=== PATIENT | male | born 1985 | race Caucasian/White ===

== ENCOUNTER → 2020-02-05 16:57 | Outpatient (BNVA) | payer OTHER, SELFPAY | PROVIDERS: Visit Provider Family Medicine | DX: I10 Essential (primary) hypertension (principal); M1A.0790 Idiopathic chronic gout, unspecified ankle and foot, without tophus (tophi) | CPT/HCPCS: 80053; 80061; 84550 ==

== ENCOUNTER → 2020-05-13 10:50 | Outpatient (BNVA) | payer OTHER, SELFPAY | PROVIDERS: Visit Provider Family Medicine | DX: E78.5 Hyperlipidemia, unspecified (principal); F41.9 Anxiety disorder, unspecified; I10 Essential (primary) hypertension; E78.1 Pure hyperglyceridemia | CPT/HCPCS: 80061 ==

== ENCOUNTER → 2020-11-17 11:40 | Outpatient (BNVA) | payer OTHER, SELFPAY | PROVIDERS: Visit Provider Nurse Practitioner Family | DX: Z20.828 Contact with and (suspected) exposure to other viral communicable diseases (principal); J06.9 Acute upper respiratory infection, unspecified | CPT/HCPCS: 87635 ==

== ENCOUNTER 2020-11-23 07:47 | Outpatient (CLI) | payer OTHER, SELFPAY ==
[2020-11-23 07:57] VITALS: BP 154/114; PULSE 90; RESP 17; TEMP 36.6; O2SAT 96; BMI 40.4
[2020-11-23 08:24] VITALS: BMI 40.4
--- NOTE | 2020-11-23 08:39 | AMB.MCA ---
Patient Information Referred by: Flora Dulce Symptom onset date: 11/15/20 COVID 19 common symptoms: positive dyspnea and fatigue Severity: mild Treatment prior to arrival: none Other details: Sats 97% RA OZH COVID test results: Nasal/Oral Coronavirus 2019 PCR Detected H 11/17/20 11:40 11/17/20 Criteria/Plan Inclusion/Exclusion Criteria weight >/= 40kg, + direct test </= 10 days ago and symptom onset </= 10 days ago BMI >/= 35 not requiring hospitalization, not requiring oxygen (if not chronically on oxygen) and no increase oxygen requirement (if chronically on oxygen) Patient education patient/caregiver received/reviewed fact sheet, Emergency Use Authorization/unapproved drug status discussed with patient/caregiver, alternatives to this treatment discussed with patient/caregiver, risks and benefits of medication reviewed with patient/caregiver, patient/caregiver given opportunity for questions, which were answered and patient/caregiver consents to receiving Monoclonal Antibody Treatment Related diagnosis (1) COVID-19: Plan for treatment Meets criteria for Monoclonal Antibody infusion Ordering Monoclonal Antibody infusion for today
[2020-11-23 09:31] VITALS: BP 148/95; PULSE 86; RESP 16; TEMP 36.5; O2SAT 95
[2020-11-23 10:02] VITALS: BP 140/100; PULSE 87; RESP 17; TEMP 36.5; O2SAT 95
[2020-11-23 11:15] VITALS: BP 163/113; PULSE 84; RESP 16; TEMP 36.6; O2SAT 96
[2020-11-23 11:16] VITALS: BP 163/113; PULSE 84; O2SAT 96
--- NOTE | 2020-11-24 14:12 | DCPLANNER ---
Addendum entered by Jillian Mullen 12/03/20 13:41: land surveyor manager called to check on patient 10 days after the BAM infusion. land surveyor manager was unable to speak with patient at this time, a voicemail was left for patient to return lead case manager phone call. Original Note: land surveyor manager had message that patient received the BAM infusion. land surveyor manager called to check on patient after receiving the infusion. Patient stated that he tolerated infusion well. Before the infusion, patient stated that before the infusion, that he had sinus pressure, cough, runny nose, and body aches. He stated that after the infusion that he is feeling a little bit better, his cough is better, his sinuses are better. Patient also stated that his body aches are better. Patient stated that he will take care of scheduling a follow up appointment with his provider.
== END 2020-11-23 11:27 | disposition home or self-care (01) ==
LOC: OPS 07:49
PROVIDERS: Visit Provider Nurse Practitioner Family
DX: U07.1 COVID-19 (principal)
CPT/HCPCS: J7050

== ENCOUNTER 2021-12-16 04:52 | Emergency (ER) | payer OTHER, SELFPAY ==
--- NOTE | 2021-12-16 04:56 | CTR_ITS ---
PROCEDURE INFORMATION: Exam: CT Abdomen And Pelvis Without Contrast Exam date and time: 12/16/2021 4:56 AM Age: 35 years old Clinical indication: Abdominal pain; Localized; Right; Patient HX: Sudden onset of RT flank pain this morning. ; Additional info: Right flank pain TECHNIQUE: Imaging protocol: Computed tomography of the abdomen and pelvis without contrast. Total images: 385 Radiation optimization: All CT scans at this facility use at least one of these dose optimization techniques: automated exposure control; mA and/or kV adjustment per patient size (includes targeted exams where dose is matched to clinical indication); or iterative reconstruction. COMPARISON: No relevant prior studies available. RADIATION DOSE METRICS: Total DLP (mGy-cm): 2175.74 FINDINGS: Liver: Hepatic steatosis is evident. Gallbladder and bile ducts: Cholelithiasis is present without cholecystitis. No gallbladder wall thickening or pericholecystic fluid collection. Pancreas: Normal. No ductal dilation. Spleen: Normal. No splenomegaly. Adrenal glands: Normal. No mass. Kidneys and ureters: Multiple nonobstructive right sided kidney stones measure as large as 6 mm. 3 mm right-sided ureterovesicular junction stone. Mild hydroureteronephrosis. Stomach and bowel: Unremarkable. No obstruction. No mucosal thickening. Appendix: No evidence of appendicitis. Intraperitoneal space: Unremarkable. No free air. No significant fluid collection. Vasculature: Incidental venous phlebolith noted. Lymph nodes: Unremarkable. No enlarged lymph nodes. Urinary bladder: Unremarkable as visualized. Reproductive: Unremarkable as visualized. Bones/joints: Disc degeneration is most notable at L4/L5. Soft tissues: Unremarkable. CT/CT kidney stone [id number] IMPRESSION: 1. 3 mm right-sided ureterovesicular junction stone. Mild hydroureteronephrosis. 2. Cholelithiasis is present without cholecystitis. No gallbladder wall thickening or pericholecystic fluid collection.
--- NOTE | 2021-12-16 04:57 | ED_ITS ---
Documented by User: French Shen MD 12/16/21 04:58 HPI - Back Pain/Injury General: Chief Complaint: Back Pain/Injury Stated Complaint: lower r back pain Time Seen by Provider: 12/16/21 04:54 Source: patient Mode of arrival: ambulatory Limitations: no limitations History of Present Illness: 35-year-old male states he woke up a few hours ago with severe right-sided flank pain. States that pain woke him up he has had 9- 10 out of 10 pain since then. States he had some nausea with it denies any radiation the pain. Denies any abdominal pain denies any pain worse with move ment states it just feels like it is inside and has no worsening or improving factors. Associated symptoms: Deny abdominal pain, chills, fever(s), nausea or vomiting Review of Systems Const: Denies: fever(s), chills, body aches or change in appetite Eyes: Denies: blurry vision or eye discomfort ENMT: Denies: throat pain or dental pain Card: Denies: chest pain Resp: Denies: dyspnea GI: Denies: abdominal pain, nausea, vomiting or diarrhea : Reports: flank pain Musc: Denies: neck pain or back pain Skin/Breast: Denies: rash Neuro: Denies: headache(s) Psych: Denies: depression Nic/Lymph: Denies: easy bruising All/Imm: Denies: urticaria PFSH ED PFSH: Medical History (Updated 12/16/21 @ 06:48 by José Luis Mora DO) Hypertension Obesity Social History (Updated 12/16/21 @ 04:57 by French Shen MD) Substance/Drug Use: never Physical Exam Const: COMMON NORMALS: no acute distress, patient oriented x3 and healthy appearing HENMT: COMMON NORMALS: normocephalic and atraumatic HEAD & SCALP: normocephalic and atraumatic Eye: COMMON NORMALS: Equal, round and reactive pupils present and EOMs intact bilaterally PUPIL: Yes Equal, round and reactive pupils present Neck/C-Spine: COMMON NORMALS: full ROM and supple Chest: COMMONS NORMALS: normal inspection of the chest and normal palpation of entire chest wall Resp: COMMON NORMALS: normal respiratory effort, No retractions, No use of accessory muscles and clear to auscultation bilaterally AUSCULTATION: clear to auscultation bilaterally Cardio: COMMON NORMALS: regular rate, regular rhythm and No murmurs present (Cardio) RATE: regular rate RHYTHM: regular rhythm GI: COMMON NORMALS: Normal to inspection, nondistended, normoactive bowel sounds present, Soft to palpation, non-tender and no masses PALPATION: Yes Soft to palpation Extremity: COMMON NORMALS: normal to inspection and full ROM Neuro: COMMON NORMALS: patient oriented x3, moves all extremities and no focal motor deficits Psych: COMMON NORMALS: mental status grossly normal, Normal thought process present and cooperative THOUGHT PROCESS: Normal thought process present Skin: COMMON NORMALS: no rashes or lesions noted and no wounds GENERAL SKIN EXAM: no rashes or lesions noted Course Vital Signs: Vital signs: Vital Signs Temperature 98.0 F 12/16/21 04:58 Pulse Rate 82 12/16/21 06:07 Respiratory Rate 18 12/16/21 06:07 Blood Pressure 142/76 12/16/21 06:07 Pulse Oximetry 99 12/16/21 06:07 MDM - Back Pain/Injury Labs Radiology Impressions Abdomen/Pelvis CT 12/16/21 04:56 IMPRESSION: 1. 3 mm right-sided ureterovesicular junction stone. Mild hydroureteronephrosis. 2. Cholelithiasis is present without cholecystitis. No gallbladder wall thickening or pericholecystic fluid collection. Laboratory Results Urine Color Yellow (Yellow) 12/16/21 05:15 Urine Appearance Clear (CLEAR) 12/16/21 05:15 Urine pH 5 (5-7) 12/16/21 05:15 Ur Specific [place] 1.020 (1.005-1.030) 12/16/21 05:15 Urine Protein Neg (Negative) 12/16/21 05:15 Urine Glucose (UA) Norm (Normal) 12/16/21 05:15 Urine Ketones Negative (Negative) 12/16/21 05:15 Urine Blood 3+ (Negative) H 12/16/21 05:15 Urine Nitrate Negative (Negative) 12/16/21 05:15 Urine Bilirubin Neg (Negative) 12/16/21 05:15 Urine Urobilinogen Norm mg/dL (Negative) 12/16/21 05:15 Ur Leukocyte Esterase Negative (Negative) 12/16/21 05:15 Urine RBC 15-25 /hpf (0-2) H 12/16/21 05:15 Urine WBC None /hpf (0-5) 12/16/21 05:15 Ur Squamous Epith Cells Rare /hpf (0-5) 12/16/21 05:15 Amorphous Sediment Not Reportable 12/16/21 05:15 Urine Bacteria None /hpf (NONE) 12/16/21 05:15 Discharge Plan Discharge Patient Disposition: Home Clinical Impression: Right nephrolithiasis Prescriptions: New hydrocodone-acetaminophen 5-325 mg tablet 1 tab PO Q6H PRN (Reason: pain) Qty: 25 0RF Zofran 4 mg tablet 4 mg PO Q6H PRN (Reason: nausea and vomiting) Qty: 20 0RF Flomax 0.4 mg capsule 0.4 mg PO DAILY Qty: 14 0RF No Action buspirone 7.5 mg tablet 7.5 mg PO BID Qty: 60 2RF lisinopril 20 mg tablet 20 mg PO DAILY Qty: 30 6RF allopurinol 300 mg tablet 300 mg PO DAILY Qty: 30 2RF Discharge Orders: Discharge ED (Routine); Ordered 12/16/21 Ordered By: José Luis Mora Discharge Diet: Usual diet Discharge Activity: Resume usual activity Activity Restrictions/Additional Instructions: Case management will make arrangements for you to have a follow-up with Dr. Cantrell. If you have uncontrolled pain, fever or any other concerning symptoms return to the emergency room Sign Out Sign Out Data: Patient Sign Out occurred on 12/16/21 at 06:29. Patient's care was discussed, and care was transferred from to José Luis Mora DO. Coding Level of Care Code ED [place] Net Or Trap for Chg Fwd Exam Comprehensive Documented by User: José Luis Mora DO 12/16/21 06:57 HPI - Back Pain/Injury General: Chief Complaint: Back Pain/Injury Stated Complaint: lower r back pain Time Seen by Provider: 12/16/21 04:54 PFSH ED PFSH: Medical History (Updated 12/16/21 @ 06:48 by José Luis Mora DO) Hypertension Obesity Social History (Updated 12/16/21 @ 04:57 by French Shen MD) Substance/Drug Use: never Course Vital Signs: Vital signs: Vital Signs Temperature 98.0 F 12/16/21 04:58 Pulse Rate 82 12/16/21 06:07 Respiratory Rate 18 12/16/21 06:07 Blood Pressure 142/76 12/16/21 06:07 Pulse Oximetry 99 12/16/21 06:07 MDM - Back Pain/Injury Medical Decision Making Care assumed at change of shift. CT shows right-sided 3 mm nephrolithiasis. Strain urine start tamsulosin and Zofran hydrocodone for pain follow-up with Dr. Cantrell return if has fever or uncontrolled pain reviewed with the patient. Medical Records I reviewed the patient's medical records. Labs I reviewed the patient's lab results. Radiology Impressions Abdomen/Pelvis CT 12/16/21 04:56 IMPRESSION: 1. 3 mm right-sided ureterovesicular junction stone. Mild hydroureteronephrosis. 2. Cholelithiasis is present without cholecystitis. No gallbladder wall thickening or pericholecystic fluid collection. Laboratory Results Urine Color Yellow (Yellow) 12/16/21 05:15 Urine Appearance Clear (CLEAR) 12/16/21 05:15 Urine pH 5 (5-7) 12/16/21 05:15 Ur Specific [place] 1.020 (1.005-1.030) 12/16/21 05:15 Urine Protein Neg (Negative) 12/16/21 05:15 Urine Glucose (UA) Norm (Normal) 12/16/21 05:15 Urine Ketones Negative (Negative) 12/16/21 05:15 Urine Blood 3+ (Negative) H 12/16/21 05:15 Urine Nitrate Negative (Negative) 12/16/21 05:15 Urine Bilirubin Neg (Negative) 12/16/21 05:15 Urine Urobilinogen Norm mg/dL (Negative) 12/16/21 05:15 Ur Leukocyte Esterase Negative (Negative) 12/16/21 05:15 Urine RBC 15-25 /hpf (0-2) H 12/16/21 05:15 Urine WBC None /hpf (0-5) 12/16/21 05:15 Ur Squamous Epith Cells Rare /hpf (0-5) 12/16/21 05:15 Amorphous Sediment Not Reportable 12/16/21 05:15 Urine Bacteria None /hpf (NONE) 12/16/21 05:15 Discharge Plan Discharge Patient Disposition: Home Clinical Impression: Right nephrolithiasis Prescriptions: New hydrocodone-acetaminophen 5-325 mg tablet 1 tab PO Q6H PRN (Reason: pain) Qty: 25 0RF Zofran 4 mg tablet 4 mg PO Q6H PRN (Reason: nausea and vomiting) Qty: 20 0RF Flomax 0.4 mg capsule 0.4 mg PO DAILY Qty: 14 0RF No Action buspirone 7.5 mg tablet 7.5 mg PO BID Qty: 60 2RF lisinopril 20 mg tablet 20 mg PO DAILY Qty: 30 6RF allopurinol 300 mg tablet 300 mg PO DAILY Qty: 30 2RF Discharge Orders: Discharge ED (Routine); Ordered 12/16/21 Ordered By: José Luis Mora Discharge Diet: Usual diet Discharge Activity: Resume usual activity Activity Restrictions/Additional Instructions: Case management will make arrangements for you to have a follow-up with Dr. Cantrell. If you have uncontrolled pain, fever or any other concerning symptoms return to the emergency room Sign Out Sign Out Data: Patient Sign Out occurred on 12/16/21 at 06:29. Patient's care was discussed, and care was transferred from to José Luis Mora DO. Coding Level of Care Code ED [place] Net Or Trap for Tru Fwfransisco Exam Comprehensive
[2021-12-16 04:58] VITALS: BP 199/123; PULSE 76; RESP 24; TEMP 36.7; O2SAT 97; BMI 41.1
[2021-12-16] MEDS: ondansetron 2 mg/ML SDV 2 mL 4 MG IVP (05:23)
[2021-12-16] MEDS: HYDROmorphone 1 mg/mL INJ 1 mL IVP (05:23)
[2021-12-16] MEDS: sodium chloride 0.9% 1,000 ML 999 ML IV (05:23)
[2021-12-16] MEDS: labetalol 5 mg/mL SDV 20mL 10 MG IVP (05:25)
[2021-12-16 05:49] VITALS: BP 148/78; PULSE 81; RESP 18; O2SAT 95
--- NOTE | 2021-12-16 05:50 | PC.NURSE ---
Pt. started to drop O2 after pain medication . Pt. sleeping. Pt. put on 2 liters of oxygen per nasal canula.
[2021-12-16 05:51] LABS: Add Urine Culture? Yes; Add Urine Microscopic? YES; Bilirubin Urine Neg (Negative); Blood Urine 3+ (Negative); Glucose Urine UA Norm (Normal); Ketones Urine Negative (Negative); Leukocyte Esterase Urine Negative (Negative); Nitrate Urine Negative (Negative); Protein Urine Neg (Negative); RBC Urine 15-25 /hpf (0-2); Squamous Epithelial Cell Urine RARE /hpf (0-5); Urine Appearance Clear (CLEAR); Urine Color Yellow (Yellow); Urobilinogen Urine Norm (Negative); pH Urine 5 (5-7)
[2021-12-16 06:07] VITALS: BP 142/76; PULSE 82; RESP 18; O2SAT 99
[2021-12-16 07:05] VITALS: BP 134/80
== END 2021-12-16 07:09 | disposition home or self-care (01) ==
PROVIDERS: Emergency Medicine; Emergency Provider Family Medicine
DX: N20.0 Calculus of kidney (principal); I10 Essential (primary) hypertension
CPT/HCPCS: 74176; 81001; 87086; 96361; 96374; 96375; 99284; J1170; J2405; J3490; J7030

== ENCOUNTER 2022-06-01 21:08 | Emergency (ER) | payer OTHER, SELFPAY ==
[2022-06-01 21:17] VITALS: BP 174/93; PULSE 84; RESP 16; TEMP 36.4; O2SAT 97
--- NOTE | 2022-06-01 22:44 | CTR_ITS ---
PROCEDURE INFORMATION: Exam: CT Abdomen And Pelvis Without Contrast Exam date and time: 06/01/2022 10:54 PM Age: 36 years old Clinical indication: Abdominal pain; Additional info: Abd pain TECHNIQUE: Imaging protocol: Computed tomography of the abdomen and pelvis without contrast. Radiation optimization: All CT scans at this facility use at least one of these dose optimization techniques: automated exposure control; mA and/or kV adjustment per patient size (includes targeted exams where dose is matched to clinical indication); or iterative reconstruction. COMPARISON: CT kidney stone [id number] 12/16/2021 5:29 AM RADIATION DOSE METRICS: Total DLP (mGy-cm): 1460.73 FINDINGS: Liver: Diffuse fatty infiltration of the liver. Gallbladder and bile ducts: Tiny calcified gallstones within the posterior gallbladder. No significant biliary ductal dilatation. Pancreas: No acute abnormality. No ductal dilation. Spleen: No acute abnormality. Adrenal glands: No acute abnormality. No mass. Kidneys and ureters: [id number] right hydronephrosis secondary to a 5 x 6 mm calculus at the right UPJ. Multiple small nonobstructing right renal lower pole calculi. Grossly normal left kidney. Stomach and bowel: No significant large or small bowel distention. No evidence of diverticulitis. Appendix: No findings to suggest acute appendicitis. Intraperitoneal space: No significant fluid collection. No free air. Vasculature: No acute abnormality. No abdominal aortic aneurysm. Lymph nodes: No enlarged lymph nodes. Urinary bladder: Nondistended decompressed urinary bladder. No bladder calculi. Reproductive: Unremarkable as visualized. Bones/joints: No acute osseous abnormality. No dislocation. Soft tissues: No significant soft tissue abnormalities. CT/CT abdomen pelvis wo con [id number] IMPRESSION: 1. [id number] right hydronephrosis secondary to a 5 x 6 mm calculus at the right UPJ. 2. Multiple small nonobstructing right renal lower pole calculi. 3. Cholelithiasis. 4. Diffuse fatty infiltration of the liver.
--- NOTE | 2022-06-01 22:45 | ED_ITS ---
HPI - Abdominal Pain General: Chief Complaint: Abdominal Pain Stated Complaint: N/V/D, abd pain Time Seen by Provider: 06/01/22 21:46 Source: patient Mode of arrival: ambulatory Limitations: no limitations History of Present Illness: 36-year-old male states that he was in abdominal cramping since yesterday evening he states that roughly 3 hours ago he started having severe vomiting and diarrhea. He states he had multiple episodes of vomiting states unsure if he had eaten something that may male states it seems to be improving slightly does have some cramping he rates a 3 out of 10 he denies any worsening improving factors at this time. Associated Symptoms: Reports diarrhea, nausea and vomiting; Denies chills, dysuria and fever(s) Review of Systems Const: Denies: fever(s), chills, body aches or change in appetite Eyes: Denies: blurry vision or eye discomfort ENMT: Denies: throat pain or dental pain Card: Denies: chest pain Resp: Denies: dyspnea GI: Reports: abdominal pain, nausea, vomiting and diarrhea : Denies: dysuria Musc: Denies: neck pain or back pain Skin/Breast: Denies: rash Neuro: Denies: headache(s) Psych: Denies: depression Nic/Lymph: Denies: easy bruising All/Imm: Denies: urticaria PFSH ED PFSH: Medical History Hypertension Obesity Social History (Updated 06/01/22 @ 22:46 by French Shen MD) Substance/Drug Use: never Physical Exam Const: COMMON NORMALS: no acute distress, patient oriented x3 and healthy appearing HENMT: COMMON NORMALS: normocephalic and atraumatic HEAD & SCALP: no rmocephalic and atraumatic Eye: COMMON NORMALS: Equal, round and reactive pupils present and EOMs intact bilaterally PUPIL: Yes Equal, round and reactive pupils present Neck/C-Spine: COMMON NORMALS: full ROM and supple Chest: COMMONS NORMALS: normal inspection of the chest and normal palpation of entire chest wall Resp: COMMON NORMALS: normal respiratory effort, No retractions, No use of accessory muscles and clear to auscultation bilaterally AUSCULTATION: clear to auscultation bilaterally Cardio: COMMON NORMALS: regular rate, regular rhythm and No murmurs present (Cardio) RATE: regular rate RHYTHM: regular rhythm GI: COMMON NORMALS: Normal to inspection, nondistended, normoactive bowel sounds present, Soft to palpation and no masses PALPATION: Yes Soft to palpation OTHER: diffuse tenderness Extremity: COMMON NORMALS: normal to inspection and full ROM Neuro: COMMON NORMALS: patient oriented x3, moves all extremities and no focal motor deficits Psych: COMMON NORMALS: mental status grossly normal, Normal thought process present and cooperative THOUGHT PROCESS: Normal thought process present Skin: COMMON NORMALS: no rashes or lesions noted and no wounds GENERAL SKIN EXAM: no rashes or lesions noted Course Vital Signs: Vital signs: Vital Signs Temperature 97.5 F L 06/01/22 21:17 Pulse Rate 84 06/01/22 21:17 Respiratory Rate 18 06/02/22 00:22 Blood Pressure 174/93 06/01/22 21:17 Pulse Oximetry 97 06/02/22 00:22 MDM - Abdominal Pain Medical Decision Making Patient presents here with pain likely from a kidney stone seen on CT scan. Patient's pain is improved. He is stable for discharge we will get him follow- up with urology he is return if worsening he understands agrees to plan. Lab Data : 06/01/22 23:14 06/01/22 23:14 Labs/Radiology: Radiology Impressions Abdomen/Pelvis CT 06/01/22 22:44 IMPRESSION: 1. [id number] right hydronephrosis secondary to a 5 x 6 mm calculus at the right UPJ. 2. Multiple small nonobstructing right renal lower pole calculi. 3. Cholelithiasis. 4. Diffuse fatty infiltration of the liver. Laboratory Results WBC 11.6 10^3/uL (4.0-10.0) H 06/01/22 23:14 RBC 5.56 10^6/uL (4.1-5.3) H 06/01/22 23:14 Hgb 15.8 g/dL (11.7-16.6) 06/01/22 23:14 Hct 45.4 % (42.0-52.0) 06/01/22 23:14 MCV 81.7 fl (80-94) 06/01/22 23:14 MCH 28.4 pg (28.0-34.0) 06/01/22 23:14 MCHC 34.8 g/dL (30.0-36.0) 06/01/22 23:14 RDW 12.0 % (12.1-15.1) L 06/01/22 23:14 Plt Count 182 10^3/cmm (130-400) 06/01/22 23:14 MPV 10.5 fL (7.4-10.4) H 06/01/22 23:14 Neut % (Auto) 81.1 % 06/01/22 23:14 Lymph % (Auto) 12.4 % 06/01/22 23:14 [place] % (Auto) 5.0 % 06/01/22 23:14 Eos % (Auto) 0.3 % 06/01/22 23:14 Baso % (Auto) 0.6 % 06/01/22 23:14 Neut # (Auto) 9.38 10^3/uL (1.8-7.7) H 06/01/22 23:14 Lymph # (Auto) 1.4 10^3/uL (0.8-4.8) 06/01/22 23:14 [place] # (Auto) 0.6 10^3/uL (0.2-0.9) 06/01/22 23:14 Eos # (Auto) 0.0 10^3/uL (0.0-0.8) 06/01/22 23:14 Baso # (Auto) 0.1 10^3/uL (0.0-0.1) 06/01/22 23:14 Nucleated RBC % (auto) 0 % 06/01/22 23:14 Nucleated RBCs # 0.0 /100WBC 06/01/22 23:14 Sodium 138 mmol/L (136-145) 06/01/22 23:14 Potassium 4.1 mmol/L (3.5-5.1) 06/01/22 23:14 Chloride 102 mmol/L (98-107) 06/01/22 23:14 Carbon Dioxide 23 mmol/L (22-29) 06/01/22 23:14 Anion Gap 17.1 (5-19) 06/01/22 23:14 BUN 14 mg/dL (6-20) 06/01/22 23:14 Creatinine 1.1 mg/dL (0.7-1.2) 06/01/22 23:14 GFR Calculation 74.9 mL/min (90-130) L 06/01/22 23:14 Glucose 234 mg/dL (65-115) H 06/01/22 23:14 Calculated Osmolality 294 mOsm/kg (285-295) 06/01/22 23:14 Calcium 9.2 mg/dL (8.5-10.5) 06/01/22 23:14 Total Bilirubin 0.4 mg/dL (0.15-1.2) 06/01/22 23:14 AST 23 U/L (0-40) 06/01/22 23:14 ALT 33 U/L (0-41) 06/01/22 23:14 Alkaline Phosphatase 86 IU/L (40-130) 06/01/22 23:14 Total Protein 7.4 g/dL (6.6-8.7) 06/01/22 23:14 Albumin 4.4 g/dL (3.5-5.2) 06/01/22 23:14 Globulin 3.0 g/dL (1.3-4.6) 06/01/22 23:14 Lipase 22 U/L (13-60) 06/01/22 23:14 Discharge Plan Discharge Patient Disposition: Home Clinical Impression: Kidney stone Prescriptions: New hydrocodone-acetaminophen 5-325 mg tablet 1 tab PO Q6H PRN (Reason: pain) Qty: 14 0RF ondansetron 4 mg tablet,disintegrating 4 mg PO Q6H PRN (Reason: nausea and vomiting) Qty: 14 0RF Continued Flomax 0.4 mg capsule 0.4 mg PO DAILY Qty: 14 0RF No Action buspirone 7.5 mg tablet 7.5 mg PO BID Qty: 60 2RF lisinopril 20 mg tablet 20 mg PO DAILY Qty: 30 6RF allopurinol 300 mg tablet 300 mg PO DAILY Qty: 30 2RF hydrocodone-acetaminophen 5-325 mg tablet 1 tab PO Q6H PRN (Reason: pain) Qty: 25 0RF Zofran 4 mg tablet 4 mg PO Q6H PRN (Reason: nausea and vomiting) Qty: 20 0RF Discharge Orders: Discharge ED (Routine); Ordered 06/02/22 Ordered By: French Shen Referrals: Jamie Cantrell MD [Physician] - 1-3 days Discharge Diet: Advance as tolerated Discharge Activity: Resume usual activity Patient Instructions: Kidney Stones (ED), Opioid Safety Coding Level of Care Code ED Welding Teacher for Chg Fwd Exam Comprehensive
[2022-06-01 23:21] VITALS: RESP 18; O2SAT 98
[2022-06-01] MEDS: morphine 4 mg/mL SDV 1 mL IVP (23:21)
[2022-06-01] MEDS: ondansetron 2 mg/ML SDV 2 mL 4 MG IVP (23:22)
[2022-06-01] MEDS: sodium chloride 0.9% 1,000 ML 999 ML IV (23:22)
[2022-06-01 23:23] LABS: Basophils # 0.1 10^3/uL (0.0-0.1); Basophils % 0.6 %; Eosinophils % 0.3 %; Hematocrit 45.4 % (42.0-52.0); Hemoglobin 15.8 g/dL (11.7-16.6); Lymphocytes # 1.4 10^3/uL (0.8-4.8); Lymphocytes % 12.4 %; Mean Corpuscular HGB Conc 34.8 g/dL (30.0-36.0); Mean Corpuscular Hemoglobin 28.4 pg (28.0-34.0); Mean Corpuscular Volume 81.7 fl (80-94); Mean Platelet Volume 10.5 fL (7.4-10.4); Monocytes # 0.6 10^3/uL (0.2-0.9); Neutrophils # 9.38 10^3/uL (1.8-7.7); Neutrophils % 81.1 %; Nucleated Red Blood Cells % 0 %; Platelet Count 182 10^3/cmm (130-400); Red Blood Count 5.56 10^6/uL (4.1-5.3); White Blood Count 11.6 10^3/uL (4.0-10.0)
[2022-06-01 23:46] LABS: Alanine Aminotransferase 33 U/L (0-41); Albumin Level 4.4 g/dL (3.5-5.2); Alkaline Phosphatase 86 IU/L (40-130); Anion Gap 17.1 (5-19); Aspartate Amino Transferase 23 U/L (0-40); Blood Urea Nitrogen 14 mg/dL (6-20); Calcium 9.2 mg/dL (8.5-10.5); Carbon Dioxide 23 mmol/L (22-29); Chloride 102 mmol/L (98-107); Glomerular Filtration Rate 74.9 mL/min (90-130); Glucose 234 mg/dL (65-115); Lipase 22 U/L (13-60); Osmolality Calculated 294 mOsm/kg (285-295); Potassium 4.1 mmol/L (3.5-5.1); Sodium 138 mmol/L (136-145); Total Bilirubin 0.4 mg/dL (0.15-1.2); Total Protein 7.4 g/dL (6.6-8.7)
[2022-06-02 00:22] VITALS: RESP 18; O2SAT 97
[2022-06-02] MEDS: HYDROmorphone 1 mg/mL INJ 1 mL IVP (00:22)
[2022-06-02 01:43] LABS: Add Urine Microscopic? YES; Bacteria Urine 1+ /hpf; Bilirubin Urine Neg (Negative); Blood Urine 3+ (Negative); Glucose Urine UA 2+ (Normal); Ketones Urine 1+ (Negative); Leukocyte Esterase Urine Negative (Negative); Mucus Urine TRACE /hpf; Nitrate Urine Negative (Negative); Protein Urine Neg (Negative); RBC Urine 40-50 /hpf (0-2); Squamous Epithelial Cell Urine 0-4 /hpf (0-5); Urine Appearance Clear (CLEAR); Urine Color Yellow (Yellow); Urobilinogen Urine Norm (Negative); WBC Urine 0-4 /hpf (0-5); pH Urine 5 (5-7)
[2022-06-02 01:45] LABS: Add Urine Culture? Yes
[2022-06-02] MEDS: HYDROcodone-acetaminophen 5-325 mg Tablet 1 TAB PO (02:10)
[2022-06-02 03:23] VITALS: BP 167/79; PULSE 78; RESP 18; TEMP 36.6; O2SAT 98
--- NOTE | 2022-06-02 11:08 | DCPLANNER ---
Addendum entered by Jillian Mullen 06/13/22 11:50: Patient had a follow up appointment scheduled for 06.09.[address] Cantrell at urology - patient did attend appointment. Original Note: geotechnical department manager had message to schedule a follow up appointment for patient with urology. geotechnical department manager sent patients information to the front office staff at urology. Patients information will be printed and reviewed. Clinic will call patient with appointment information.
== END 2022-06-02 03:27 | disposition home or self-care (01) ==
PROVIDERS: Physician Assistant; Emergency Provider Emergency Medicine
DX: N20.0 Calculus of kidney (principal)
CPT/HCPCS: 74176; 80053; 81001; 83690; 85025; 87086; 96374; 96375; 99285; J1170; J2270; J2405; J7030

== ENCOUNTER 2022-06-03 04:31 | Emergency (ER) | payer OTHER, SELFPAY ==
[2022-06-03 04:41] VITALS: BP 178/107; PULSE 91; RESP 20; TEMP 37; O2SAT 96; BMI 41.2
--- NOTE | 2022-06-03 06:11 | W.ED.MALEGU ---
HPI - Male Genitourinary General: Chief complaint: Urogenital-Male Stated complaint: low back pain Time Seen by Provider: 06/03/22 05:33 Source: patient Mode of arrival: ambulatory Limitations: no limitations History of Present Illness: This patient returns to the emergency department because of right flank pain. He began having right flank pain radiating to the right abdomen on was seen in the emergency department diagnosed having a right utero lithiasis. He was comfortable at the time he departed the emergency department but is now returned because he still having some low-grade right flank and abdominal pain. He states he is urinating relatively normally and has had no fevers, chills, nausea, vomiting, diarrhea. He has had 1 prior kidney stone previously that did not require intervention and passed spontaneously. He was apparently given hydrocodone for pain which which has not given him significant relief. He was also given Flomax which he states he is taken. He has not had any abdominal surgeries. He denies any other constitutional complaints, back injury weakness numbness etc. Quality: aching and dull Associated symptoms: Deny dysuria, hematuria, nausea or vomiting Review of Systems Const: Denies: fever(s), chills or body aches Eyes: Denies: change in vision ENMT: Denies: throat pain, odynophagia, mouth pain or nasal congestion Card: Denies: chest pain, palpitations or irregular heart rhythm Resp: Denies: dyspnea, productive cough or non-productive cough GI: Denies: nausea, vomiting or diarrhea : Reports: flank pain (Right); Denies: dysuria, urinary frequency, urinary dribbling, hematuria or genital pain Musc: Denies: neck pain, extremity pain or extremity swelling Skin/Breast: Denies: rash Neuro: Denies: headache(s), numbness in extremities or weakness in extremities Endo: Denies: polyuria or polydipsia Nic/Lymph: Denies: easy bruising or easy bleeding PFSH ED PFSH: Medical History Hypertension Obesity Physical Exam Narrative: EXAM NARRATIVE: He appears comfortable and cooperative. He is fluent and goal directed in speech. Const: COMMON NORMALS: no acute distress and healthy appearing NUTRITIONAL APPEARANCE: overweight HENMT: COMMON NORMALS: normocephalic, Normal nasal mucous membranes and turbinates present and moist oral mucous membranes HEAD & SCALP: normocephalic NOSE: Normal nasal mucous membranes and turbinates present Eye: COMMON NORMALS: Equal, round and reactive pupils present, EOMs intact bilaterally and no scleral icterus PUPIL: Yes Equal, round and reactive pupils present Neck/C-Spine: COMMON NORMALS: full ROM, no lymphadenopathy, supple and no JVD Chest: COMMONS NORMALS: normal inspection of the chest and normal palpation of entire chest wall Resp: COMMON NORMALS: normal respiratory effort, No retractions and No use of accessory muscles EFFORT & INSPECTION: Yes able to speak in complete sentences Cardio: COMMON NORMALS: no JVD, regular rhythm, No murmurs present (Cardio) and Peripheral pulses 2+ throughout RHYTHM: regular rhythm PERIPHERAL PULSES: Peripheral pulses 2+ throughout GI: COMMON NORMALS: No hepatosplenomegaly present, no masses and no bruits PALPATION: Yes No hepatosplenomegaly present OTHER: mild right flank and abd tenderness. No rebound, guarding, etc. : BLADDER/KIDNEY EXAM: Yes CVA tenderness Back/Pelvis: COMMON NORMALS: thoracic and lumbar spine normal to inspection GENERAL BACK: Yes CVA tenderness CVA tenderness: right (minimal) and No ecchymosis LUMBAR SPINE/LOWER BACK: Yes lumbar ROM normal, No lumbar spinal tenderness, No paraspinal muscle spasm and Yes straight leg raise negative bilaterally Extremity: COMMON NORMALS: normal to inspection, capillary refill normal and no calf tenderness Neuro: COMMON NORMALS: moves all extremities, no focal motor deficits, no sensory deficits noted and gait normal Psych: COMMON NORMALS: mental status grossly normal Skin: COMMON NORMALS: no rashes or lesions noted, no wounds, turgor normal and no jaundice GENERAL SKIN EXAM: no rashes or lesions noted and turgor normal Course Reevaluation(s): Reevaluation #1: Pt states he feels better. Repeat exam reveals no peritoneal signs and no new or focal findings. Time: 06:50 Vital Signs: Vital signs: Vital Signs Temperature 98.6 F 06/03/22 04:41 Pulse Rate 91 06/03/22 04:41 Respiratory Rate 20 H 06/03/22 04:41 Blood Pressure 178/107 06/03/22 04:41 Pulse Oximetry 96 06/03/22 04:41 MDM - Male Medical Decision Making Pt with right ureteral stone on Ct. No fevers or other concerning findings. Has a very reassuring exam today. He returned to the ED primarily bc he expected stone to have passed given his one experience previously. He does have 1+ bacteria on UA. He does have a 5 mm stone and therefore it would be expected that he should pass that and I discussed that with the patient. I will go ahead and and place him on antibiotics for 5 days as well to mitigate against infection (afebrile and normal white count). I discussed return precautions in detail to include increasing pain, fever etc. We will plan on keeping him on oral Toradol for 4 to 5 days. We will also have case management involved regarding urology referral. He is currently clinically stable and was appreciative of care. Medical Records I reviewed the patient's medical records. labs and ct noted. Discharge Plan Discharge Patient Disposition: Home Clinical Impression: Kidney stone Condition: Stable Prescriptions: New ketorolac 10 mg tablet 10 mg PO Q8H 4 Days Qty: 12 0RF sulfamethoxazole-trimethoprim [Bactrim DS] 800-160 mg tablet 1 tab PO BID 5 Days Qty: 10 0RF No Action buspirone 7.5 mg tablet 7.5 mg PO BID Qty: 60 2RF lisinopril 20 mg tablet 20 mg PO DAILY Qty: 30 6RF allopurinol 300 mg tablet 300 mg PO DAILY Qty: 30 2RF hydrocodone-acetaminophen 5-325 mg tablet 1 tab PO Q6H PRN (Reason: pain) Qty: 25 0RF Zofran 4 mg tablet 4 mg PO Q6H PRN (Reason: nausea and vomiting) Qty: 20 0RF hydrocodone-acetaminophen 5-325 mg tablet 1 tab PO Q6H PRN (Reason: pain) Qty: 14 0RF ondansetron 4 mg tablet,disintegrating 4 mg PO Q6H PRN (Reason: nausea and vomiting) Qty: 14 0RF Flomax 0.4 mg capsule 0.4 mg PO DAILY Qty: 14 0RF Discharge Orders: Discharge ED (Routine); Ordered 06/03/22 Ordered By: Erwin Vidal Discharge Diet: Usual diet Discharge Activity: Increase activity as tolerated Patient Instructions: Opioid Safety Activity Restrictions/Additional Instructions: You may take the ketorolac (Toradol) every 8 hours as needed for pain for the next 3 to 4 days. Take the antibiotics we have prescribed twice daily for the next 5 days. You should be contacted on Sunday regarding urology follow-up. If you develop fevers, increasing pain, intolerance of medication or any concerns return to this or the nearest emergency department. Coding Level of Care Code ED Medical Records Coder for [facility] Exam Comprehensive
[2022-06-03] MEDS: ketorolac 30 mg/mL INJ 15 MG IM (06:17)
[2022-06-03 07:44] VITALS: BP 168/113; PULSE 96; RESP 18; O2SAT 97
--- NOTE | 2022-06-05 11:19 | DCPLANNER ---
Addendum entered by Jillian Mullen 06/13/22 13:53: Patient had a follow up appointment scheduled for 06.09.[address] Cantrell at urology - patient did attend appointment. Original Note: manager of network had message to schedule a follow up appointment for patient with urology. manager of network sent patients information to the front office staff at urology. Patients information will be printed and reviewed. Clinic will call patient with appointment information.
== END 2022-06-03 07:47 | disposition home or self-care (01) ==
PROVIDERS: Emergency Provider Emergency Medicine
DX: N20.0 Calculus of kidney (principal); I10 Essential (primary) hypertension
CPT/HCPCS: 96372; 99284; J1885

== ENCOUNTER 2022-06-09 10:28 | Outpatient (CLI) | payer OTHER, SELFPAY | END 2022-06-09 10:29 | disposition home or self-care (01) | PROVIDERS: PCP Family Medicine; Visit Provider Urology | DX: N20.1 Calculus of ureter (principal) | CPT/HCPCS: 74018; 81003 ==

== ENCOUNTER → 2025-03-03 13:12 | Outpatient (BNVA) | payer OTHER, SELFPAY | PROVIDERS: PCP Family Medicine; Visit Provider Internal Medicine | DX: R07.9 Chest pain, unspecified (principal) | CPT/HCPCS: 93005 ==